=== PATIENT | female | born 1940 | race Caucasian/White ===

== ENCOUNTER 2017-09-30 07:31 | Inpatient (IN) | payer MEDICARE, BC ==
--- NOTE | 2017-09-30 07:42 | EDM.PDOC ---
ED HPI GENERAL MEDICAL PROBLEM - General Chief Complaint: General Stated Complaint: N/V; Fevers Time Seen by Provider: 09/30/17 07:31 Source of Information: Reports: Patient, EMS Notes Reviewed, RN, RN Notes Reviewed History Limitations: Reports: No Limitations - History of Present Illness INITIAL COMMENTS - FREE TEXT/NARRATIVE: Patient is brought to the ED at [facility] via EMS for a 2 day history of fevers, flu-like symptoms, N/V, and weakness. No close family members or contacts with similar symptoms. Patient was given 4mg Zofran per EMS. No for neurological deficits. Patient denies any chest pain or SOB. Patient states she has vomited 6-7 times since yesterday. She states the vomitus is green/yellow. She also states her stools have been black but formed. Onset Date: 09/28/17 Lower Back Pain Score (Numeric/FACES): 7 Left Ear Pain Score (Numeric/FACES): 5 - Related Data Allergies Allergy/AdvReac Type Severity Reaction Status Date / Time No Known Allergies Allergy Verified 09/30/17 07:58 Home Meds: Home Meds Aspirin 81 mg DAILY 09/30/17 [History] Beta-Carotene(A) W-C & E/Min [Vision Vitamins] 2 tab BID 09/30/17 [History] Calcium Citrate/Vitamin D2 [Tim-Citrate Plus Vitamin D Tab] 1 tab DAILY [History] Denosumab [Prolia] 1 ml SUBCUT Q6M 09/30/17 [History] Escitalopram [Lexapro] 20 mg DAILY 09/30/17 [History] Simvastatin [Zocor] 10 mg DAILY 09/30/17 [History] ED ROS GENERAL - Review of Systems Review Of Systems: See Below Constitutional: Reports: Fever, Weakness, Decreased Appetite. Denies: Chills Respiratory: Denies: Shortness of Breath, Cough Cardiovascular: Denies: Chest Pain, Palpitations GI/Abdominal: Reports: Abdominal Pain, Black Stool, Nausea, Vomiting Skin: Reports: No Symptoms Neurological: Denies: Dizziness, Headache ED EXAM, GENERAL - Physical Exam Exam: See Below Exam Limited By: No Limitations General Appearance: Alert, No Apparent Distress Respiratory/Chest: No Respiratory Distress, Lungs Clear, Normal Breath Sounds Cardiovascular: Normal Peripheral Pulses, Regular Rate, Rhythm Peripheral Pulses: 2+: Radial (L), Radial (R) GI/Abdominal: Soft, Non-Tender, Abnormal Bowel Sounds (Hypoactive) Extremities: Normal Inspection Neurological: Alert, Oriented Skin Exam: Warm, Dry, Intact, Normal Color Course - Vital Signs Last Recorded V/S: Last Vital Signs Temp 38.0 C 09/30/17 07:35 Pulse 109 H 09/30/17 07:35 Resp 16 09/30/17 07:35 BP 162/78 H 09/30/17 07:35 Pulse Ox 95 09/30/17 07:35 - Orders/Labs/Meds Orders: Active Orders 24 hr Category Date Time Status Admission Status [Patient Status] [ADT] Routine ADT 09/30/17 09:08 Ordered Abdomen 2V AP Flat Upright [CR] Stat Exams 09/30/17 07:51 Taken Abdomen Pelvis w Cont [CT] Stat Exams 09/30/17 08:55 Ordered CULTURE BLOOD [BC] Stat Lab 09/30/17 07:59 Received CULTURE BLOOD [BC] Stat Lab 09/30/17 08:05 Received INFLUENZA A+B AG SCREEN [RM] Stat Lab 09/30/17 08:23 Ordered UA W/MICROSCOPIC [URIN] Stat Lab 09/30/17 08:57 Ordered Sodium Chloride 0.9% [Saline Flush] Med 09/30/17 07:45 Active 10 ml FLUSH ASDIRECTED PRN Blood Culture x2 Reflex Set [OM.PC] Stat Oth 09/30/17 07:42 Ordered Peripheral IV Insertion Adult [OM.PC] Routine Oth 09/30/17 07:45 Ordered Medication Orders Sodium Chloride (Saline Flush) 10 ml FLUSH ASDIRECTED PRN PRN Reason: Keep Vein Open Labs: Laboratory Tests 09/30/17 09/30/17 09/30/17 Range/Units 07:59 07:59 07:59 WBC 14.0 H (4.0-10.0) x10^3/uL RBC 4.43 (4.00-5.50) x10^6/uL Hgb 13.7 (12.0-16.0) g/dL Hct 40.7 (33.0-47.0) % MCV 91.9 (78.0-93.0) fL MCH 30.9 (26.0-32.0) pg MCHC 33.7 (32.0-36.0) g/dL RDW Coeff of Nikolas 14.2 (10.0-15.0) % Plt Count 211 (130-400) x10^3/uL Neut % (Auto) 87.8 H (50.0-80.0) % Lymph % (Auto) 2.4 L (25.0-50.0) % [place] % (Auto) 9.7 (2.0-11.0) % Eos % (Auto) 0.0 (0.0-4.0) % Baso % (Auto) 0.1 L (0.2-1.2) % Sodium 140 (136-145) mmol/L Potassium 2.9 L* (3.5-5.1) mmol/L Chloride 102 (98-107) mmol/L Carbon Dioxide 22 (21-32) mmol/L Anion Gap 18.9 (10-20) mmol/L BUN 10 (7-18) mg/dL Creatinine 0.7 (0.55-1.02) mg/dL Est Cr Clr Drug Dosing 53.36 mL/min Estimated GFR (MDRD) > 60 Glucose 187 H (74-106) mg/dL Lactic Acid 1.6 (0.4-2.0) mmol/L Calcium 8.5 (8.5-10.1) mg/dL Corrected Calcium 8.58 (8.5-10.1) mg/dL Magnesium 1.9 (1.8-2.4) mg/dL Total Bilirubin 1.2 H (0.2-1.0) mg/dL AST 21 (15-37) U/L ALT 33 (14-59) U/L Alkaline Phosphatase 80 (46-116) U/L C-Reactive Protein 10.0 H (<=0.9) mg/dL Total Protein 7.7 (6.4-8.2) g/dL Albumin 3.9 (3.4-5.0) g/dL Globulin 3.8 Albumin/Globulin Ratio 1.03 Amylase 28 (25-115) U/L Lipase 59 L (73-393) U/L Meds: Medications Generic Name Dose Route Start Last Admin Trade Name Freq PRN Reason Stop Dose Admin Sodium Chloride 10 ml 09/30/17 07:45 Saline Flush FLUSH ASDIRECTED PRN Keep Vein Open Discontinued Medications Generic Name Dose Route Start Last Admin Trade Name Freq PRN Reason Stop Dose Admin Lactated Ringer's 1,000 mls @ 999 mls/hr 09/30/17 07:45 09/30/17 07:48 Ringers, Lactated IV 09/30/17 08:45 999 mls/hr ONETIME ONE Administration Iopamidol 100 ml 09/30/17 09:04 Isovue-300 (61%) IVPUSH 09/30/17 09:05 ONETIME ONE - Radiology Interpretation Free Text/Narrative:: Abd 2V: No acute findings - see scanned report in EMR Departure - Departure Time of Disposition: 09:10 Disposition: Admitted As Inpatient 67 Condition: Good Clinical Impression: Weakness Nausea & vomiting Qualifiers: Vomiting type: bilious vomiting Qualified Code(s): R11.14 - Bilious vomiting Fever Qualifiers: Fever type: unspecified Qualified Code(s): R50.9 - Fever, unspecified - Discharge Information - Problem List Review Problem List Initiated/Reviewed/Updated: Yes - My Orders Last 24 Hours: My Active Orders 09/30/17 07:42 Blood Culture x2 Reflex Set [OM.PC] Stat 09/30/17 07:45 Sodium Chloride 0.9% [Saline Flush] 10 ml FLUSH ASDIRECTED PRN Peripheral IV Insertion Adult [OM.PC] Routine 09/30/17 07:51 Abdomen 2V AP Flat Upright [CR] Stat 09/30/17 07:59 CULTURE BLOOD [BC] Stat 09/30/17 08:05 CULTURE BLOOD [BC] Stat 09/30/17 08:23 INFLUENZA A+B AG SCREEN [RM] Stat 09/30/17 08:55 Abdomen Pelvis w Cont [CT] Stat 09/30/17 08:57 UA W/MICROSCOPIC [URIN] Stat 09/30/17 09:08 Admission Status [Patient Status] [ADT] Routine - Assessment/Plan Last 24 Hours: My Active Orders 09/30/17 07:42 Blood Culture x2 Reflex Set [OM.PC] Stat 09/30/17 07:45 Sodium Chloride 0.9% [Saline Flush] 10 ml FLUSH ASDIRECTED PRN Peripheral IV Insertion Adult [OM.PC] Routine 09/30/17 07:51 Abdomen 2V AP Flat Upright [CR] Stat 09/30/17 07:59 CULTURE BLOOD [BC] Stat 09/30/17 08:05 CULTURE BLOOD [BC] Stat 09/30/17 08:23 INFLUENZA A+B AG SCREEN [RM] Stat 09/30/17 08:55 Abdomen Pelvis w Cont [CT] Stat 09/30/17 08:57 UA W/MICROSCOPIC [URIN] Stat 09/30/17 09:08 Admission Status [Patient Status] [ADT] Routine Assessment:: Nausea and Vomiting Weakness Fever Plan: Case discussed with Dr. Zelda Vargas. Patient will be admitted acute under her service. Patient aware and agrees with plan.
[2017-09-30] MEDS ORDERED: Sodium Chloride 0.9% 10 ML Syringe FLUSH PRN (07:45)
[2017-09-30] MEDS ORDERED: Lactated Ringers 1,000 ML IV ONE (07:45)
[2017-09-30 08:33] LABS: CHLORIDE,CL 102 mmol/L (98-107); SODIUM,NA 140 mmol/L (136-145)
[2017-09-30] MEDS ORDERED: Iopamidol 612 MG/ML 100 ML Bottle IVPUSH ONE (09:04)
[2017-09-30] MEDS ORDERED: Potassium Chloride 20 MEQ in Premix Bag 1 BAG IV ONE ×2 (09:14→11:02)
[2017-09-30] MEDS ORDERED: cefTRIAXone 1 GM Vial IVPUSH ONE ×2 (09:15→13:02)
[2017-09-30] MEDS ORDERED: Ondansetron 4 MG/2 ML SDV IVPUSH PRN (11:01)
[2017-09-30] MEDS ORDERED: Lactated Ringers 1,000 ML IV SCH (11:15)
[2017-09-30] MEDS ORDERED: Acetaminophen 650 MG Supp RECTAL ONE (12:32)
[2017-09-30] MEDS ORDERED: Clindamycin Phosphate 900 MG in Sodium Chloride 0.9% 100 ML IV ONE (13:30)
--- NOTE | 2017-09-30 13:44 | HP ---
CHIEF COMPLAINT: Fever, vomitting, and weakness HISTORY OF PRESENT ILLNESS: This is a 77-year-old female, who was in her normal state of health last evening per her daughter, who had actually talked to her on the phone, when she developed some vomiting. She tells me very clearly that she vomited 7 or 8 times before coming in and there was no blood in her vomit. She denied any abdominal pain, but has had some back discomfort. No neck pain or Headache. No burning with urination. The EMS reported blurred vision but I didn't get that report until later. She has had some cough, but no troubled breathing. Influenza testing was normal in the ER. Her white count was 14,000. UA was requested, but is pending. She did receive 1 g of Rocephin. Lipase was normal at 59. Potassium mildly low at 2.9. She was receiving IV potassium. She had a CT of the abdomen, which showed bilateral adrenal lesions and a mass in her pelvis. ? Metastasis. She had been normally healthy up until this point. Her states she has been quite active, working out in the yard. When I reassessed her to tell her the CT results, she was able only to answer questions yes or no usually appropriately, but her condition had greatly deteriorated from the morning, therefore I ordered a head CT. ALLERGIES: None. MEDICATIONS: Her medication list is reviewed. She has been on albuterol p.r.n. She did have a respiratory infection pneumonia 1 year ago, but recovered uneventfully. She is on aspirin 81 mg daily, vitamins with beta-carotene, calcium and D. She is on Prolia. She is on Lexapro 10 mg daily and Zocor 10 mg daily. PAST MEDICAL HISTORY: Includes hyperlipidemia, mood disorder related to some anxiety with her having memory loss, osteoporosis. She has been quite healthy. SOCIAL HISTORY: She does not smoke. She is . I spoke with her daughter, Luda, on the phone. Her number is actually [phone]. has lung disease and some memory problems from what I gather. REVIEW OF SYSTEMS: As stated in HPI. Currently, it is unobtainable, but earlier this morning when I visited with her, there had been no weight changes. She had felt the fever up to like 101. She, otherwise, had not been having any shortness of breath. She did have 1 darker bowel movement yesterday. Her stated it was a larger bowel movement, but there was no diarrhea or ongoing black stools. PHYSICAL EXAMINATION: Vital Signs: Include a temperature of 100.9, pulse 112, blood pressure 151/78, respiratory rate 14, and O2 is 97% on room air. She did come in by ambulance. She was on some oxygen with 92% prior to applying that per report. Repeat temperature later when she was more confused was 103 rectally. General: She is in no acute distress. Heart: Regular rate and rhythm. Respiratory: Lung sounds are clear to auscultation bilaterally. Abdomen: Nondistended, nontender. Extremities: Warm and dry. No edema. Neurologic: On her first exam, she was able to follow commands and answer questions. On her second exam, she was not able to answer questions. She was able to squeeze my hands and follow some commands, but not fully. She was not moving her legs for me. Her pupils were equal, reactive to light, but she would open her eyes to command. LABORATORY DATA: Otherwise, her lab work was reviewed. Again, white count 14,000, hemoglobin 13.7, platelets 211. Sodium 140, potassium 2.9. She is on her second bolus of KCl, another 20 mEq. Chloride 102, bicarb 22, glucose 187. Lactic originally 1.6, repeat pending. Magnesium 1.9. Bilirubin 1.2. CRP was 10. ALT 33 and AST 21. Albumin 3.9. CT, again as stated in HPI, shows bilateral adrenal lesions, suspect some metastatic disease. 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 ASSESSMENT AND PLAN: 1. At this point, the patient was admitted for acute cares. We continued IV potassium. We continued IV fluids. CT of the head and chest was requested to rule out other metastatic disease. She did have some contrast from her CT earlier, which may affect the reading, but Radiology is aware and looking more for metastatic disease than an acute bleed, as she has no focal deficits. 2. Acute encephalopathy, likely due to fever. We will give her some rectal Tylenol. There is concern this could be meningitis. She has already received 1 g of Rocephin. We will give her a second gram. Blood cultures were already ordered. I will confirm radiology report with the radiologist. 3. Adjustment disorder. We will hold her other medications with Lexapro currently, this is a chronic problem, including for her osteopenia (prolia last in ) and hyperlipidemia. We will only give her essential medications. We will continue her on IV fluids. I have already updated her family once. We will also update them again after the CT. She may very likely require transfer to a higher level of care. She is a code level 1. Addendum CT return with air in the subarachnoid space discussed with the radiologist this could be from a gas forming organism so transfer and LP were arranged. MKA: 09/30/2017 13:14:20 MODL: 09/30/2017 13:36:56 /[id number]
[2017-09-30] MEDS ORDERED: levETIRAcetam 500 MG in Sodium Chloride 0.9% 100 ML IV ONE (14:10)
--- NOTE | 2017-09-30 14:42 | PCM.PRNOTE ---
- Free Text/Narrative Note: I was called by Zelda Vargas D.O. 2 perform lumbar puncture on a patient with suspected meningitis. The patient was found to be verbally unresponsive. Does moan slightly to pain. No informed consent was given to the patient due to this. Dr. Vargas had told the patient's family that we would be doing this. Patient was placed in a right lateral decubitus. I donned a Mask and sterile gloves. The lumbar back region was prepped from L1 to the lower aspect of the sacrum, and from the edge to edge. This was accomplished using ChloraPrep. I scrubbed vigorously for approximately 1-1/2 minutes. The prep was allowed to dry completely before I placed sterile drapes. Sterile technique was maintained throughout. I located the L4-5 interspace. Then infiltrated that interspace with 1% Xylocaine approximately 1 mL. I then placed a 22-gauge Feliz needle using a midline approach and advanced with some slight redirection I was able to attain access to the subarachnoid space. Removed the stylette and there was fluid return in the hub. I then collected 4 vials in order numerically. Each vial contained between 1-2 mL of CSF. No blood was noted in the CSF. The color was yellow and slight cloudiness to it. I added each of the tubes office I collected them. These were sealed and then sent to lab for analysis. Needle was removed. Band-Aid was applied.
--- NOTE | 2017-10-01 09:44 | DISCH ---
PRIMARY DISCHARGE DIAGNOSES: 1. Meningitis, suspect due to gas-forming organism with air in the subarachnoid space by CT. Fever and vomiting as symptoms. 2. Acute encephalopathy due to meningitis. The patient did receive IV Rocephin and IV clindamycin and IV Keppra for seizure prophylaxis. 3. Hypokalemia replaced IV due to inability to take p.o. she got 20 mEq IV and was on her second bolus. 4. Sepsis secondary to meningitis. 5. Underlying hyperlipidemia and osteoporosis. REASON FOR TRANSFER: This 77-year-old female was admitted. She had a deterioration in her neurologic status. She was unable to answer questions, follow commands. LP was requested and STUDENT ACCOUNTS MANAGER is performing that at the time of this transfer dictation. I had already contacted [facility] and arranged transfer to Dr. Stubbs in the ICU. Neurology, Dr. Yun is also aware along with Infectious Disease. The patient's temperature at one point, spiked up over 103. She did receive some rectal Tylenol. Otherwise, she has been on IV fluids. Quintero was put in and she had nearly 2 L out. UA was sent and is pending. Influenza testing is negative. CT's were also done, which did show her to have bilateral adrenal lesions and left adnexal mass, no Pneumonia was noted on the chest CT. She which will need further workup in the future for the adrenal and adnexal findings. She had been coughing prior to her admission but influenza was negative. Her daughter had spoke with her the evening before and she was sounding okay. She had been out doing her yard work over the weekend. Discharge transfer vitals were stable. She was mildly tachycardic still, but not hypotensive. O2 saturations were 97% on room air. Forty minutes of critical care time spent with the patient. MKA: 09/30/2017 14:13:45 MODL: 10/01/2017 09:01:40 /[id number] MTDShai
== END 2017-09-30 14:30 | disposition short-term general hospital (02) | DRG 871 ==
LOC: VM.ED 07:31 → VM.MS 09:08
PROVIDERS: ADMIT Internal Medicine; ATTEND Internal Medicine
PROC: 009U3ZX Drainage of Spinal Canal, Percutaneous Approach, Diagnostic (ICD-10-PCS; principal; 2017-09-30)
DX: A41.9 Sepsis, unspecified organism (principal); G93.40 Encephalopathy, unspecified; G03.9 Meningitis, unspecified; E87.6 Hypokalemia; E78.5 Hyperlipidemia, unspecified; M81.0 Age-related osteoporosis without current pathological fracture; E27.9 Disorder of adrenal gland, unspecified; R19.00 Intra-abdominal and pelvic swelling, mass and lump, unspecified site; F41.9 Anxiety disorder, unspecified; F39 Unspecified mood [affective] disorder; Z79.82 Long term (current) use of aspirin; Z79.899 Other long term (current) drug therapy
CPT/HCPCS: 36415; 51702; 62270; 70450; 71250; 74019; 74177; 80053; 81001; 82150; 82533; 82945; 83605; 83690; 83735; 84157; 85025; 86140; 87040; 87070; 87075; 87077; 87181; 87184; 87186; 87205; 87804; 87804-59; 89050; 96360; 96361; 96374; 99284-GF; 99285; A9270-GY; J0696; J1953; J3480; J7050; J7120; Q9967; S0077